=== PATIENT | female | born 1985 | race Hispanic/Latino ===

== ENCOUNTER 2023-12-25 15:29 | Emergency (ER) | payer BC ==
[~2023-12-25] VITALS: Ht 154.9 cm; Wt 43.1 kg
--- NOTE | 2023-12-25 15:30 | NUR ---
PT JUST ARRIVED AND ASSIGNED TO MY AND PLACED IN ED BED HALLWAY C1
--- NOTE | 2023-12-25 15:35 | NUR ---
PT ARRIVED VERY ANXIOUS APPERATING, HYPERVENTING WELL. SHE IS VERY UNCOOPERATIVE AND NOT WANTING TO FOLLOW ANY DIRECTIONS OR INSTRUCTIONS.
[2023-12-25 15:50] LABS: APPEARANCE,URINE CLOUDY (CLEAR); BILIRUBIN,URINE NEGATIVE (NEGATIVE); COLOR,URINE YELLOW (YELLOW); GLUCOSE, URINE (UA) NEGATIVE (NEGATIVE); KETONES,URINE NEGATIVE (NEGATIVE); LEUKOCYTE ESTERASE ,URINE 25 Leu/uL (NEGATIVE); NITRATE,URINE NEGATIVE (NEGATIVE); OCCULT BLOOD,URINE NEGATIVE (NEGATIVE); PH,URINE 8.5 (5.0-8.0); PROTEIN,URINE 20 mg/dL (NEGATIVE); UROBILINOGEN,URINE 0.2 mg/dL (0.2-1.0)
[2023-12-25] MEDS: PROMETHAZINE HCL 25 MG/ML 1ML AMPULE IM ONE (15:52)
[2023-12-25] MEDS: PROMETHAZINE HCL 25 MG/ML 1ML AMPULE IM SCH (15:52)
--- NOTE | 2023-12-25 15:52 | NUR ---
PT WAS GIVEN PHENERGAN IM D/T ASSIST I CALMING HER DOWN AND FOR HER FORCED SELF VOMITING. SECURITY HAD TO BE CALLED D/T PT AGGRESSIVENESS. PT ALSO STICKING HER FINGERS INTO HER MOUTH AND VOMITING ALL THE WATER SHE HAS DRUNK SINCE ARRIVING TO THE ED. PT VERBALIZED THAT SHE WANTS TO AND SAYS THAT SHE WOULD LIKE FOR US TO KILL HER AND SHE JUST NO LONGER WANTS TO LIVE.
[2023-12-25 15:53] LABS: ADD UA MICROSCOPIC YES
--- NOTE | 2023-12-25 15:55 | NUR ---
ONE TO ONE: [employer] SERVER CURRENTLY STANDING A 1:1 . PT IS VERY UNCOOPERATIVE.
[2023-12-25 16:00] LABS: AMPHET/METH SCREEN,URINE NEGATIVE (NEGATIVE); BARBITURATE SCREEN, URINE NEGATIVE (NEGATIVE); BENZODIAZEPINES SCREEN,URINE NEGATIVE (NEGATIVE); CANNABINOID SCREEN,URINE POSITIVE (NEGATIVE); COCAINE SCREEN,URINE NEGATIVE (NEGATIVE); OPIATE SCREEN,URINE NEGATIVE (NEGATIVE); PHENCYCLIDINE SCREEN,URINE NEGATIVE (NEGATIVE)
--- NOTE | 2023-12-25 16:00 | NUR ---
PT CONTINUES TO STICK HER FINGERS IN HER MOUTH AND FORCE HERSELF TO VOMIT AND THEN TURN AROUND AND ASKS FOR FLUIDS.
[2023-12-25 16:22] LABS: BACTERIA,URINE FEW /HPF (None Seen); MUCUS,URINE RARE LPF (None Seen); SQUAMOUS EPITHELIAL CELL,UR RARE /HPF (0-2)
[2023-12-25] MEDS: LORazepam 2 MG/ML 1 ML VIAL IM ONE (17:04)
[2023-12-25 17:22] LABS: BASOPHILS # (AUTO) 0.11 K/uL (0.00-0.20); BASOPHILS % (AUTO) 0.6 % (0.0-5.0); EOSINOPHILS # (AUTO) 0.07 K/uL (0.00-0.70); EOSINOPHILS % (AUTO) 0.4 % (0.0-8.0); HEMATOCRIT 38.9 % (36-48); IMMATURE GRANULOCYTE ABSOLUTE 0.14 K/uL (0-1); LYMPHOCYTES # (AUTO) 2.1 K/uL (1.0-4.8); LYMPHOCYTES % (AUTO) 11.4 % (21.0-51.0); MEAN CORPUSCULAR HGB CONC 34.2 g/dL (32.0-36.0); MEAN CORPUSCULAR VOLUME 93.7 fL (79-99); MONOCYTES # (AUTO) 1.2 K/uL (0.1-1.0); MONOCYTES % (AUTO) 6.8 % (3.0-13.0); NEUTROPHILS # (AUTO) 14.6 K/uL (1.8-7.7); PLATELET COUNT (AUTO) 324 K/uL (130-400); RED BLOOD CELL COUNT(AUTO) 4.15 MIL/uL (4.00-5.50); WHITE BLOOD COUNT (AUTO) 18.2 K/uL (4.8-10.8)
[2023-12-25 17:26] LABS: CARBON DIOXIDE 25 mmol/L (21-32); CHLORIDE 104 mmol/L (101-111); GLOMERULAR FILTR. RATE CALC 73 mL/min (>90); GLUCOSE,RANDOM 138 mg/dL (70-105); POTASSIUM 3.2 mmol/L (3.5-5.1); SODIUM SERUM 143 mmol/L (136-145); UREA NITROGEN, BLOOD 9 mg/dL (7-18)
[2023-12-25 17:30] LABS: ALCOHOL, BLOOD < 3 mg/dL (0-10); SALICYLATE 4.1 mg/dL (2.8-20.0)
--- NOTE | 2023-12-25 17:33 | NUR ---
PT UNCOOPERATIVE AND WILL NOT ALLOW COMPLETE VITAL SIGNS NOR 12 LEAD EKG. PT WALKS TO THE BATHROOM EVERY 5-10MINS WHILE STICKING HER FINGERS IN HER MOUTH.
[2023-12-25 17:42] LABS: ACETAMINOPHEN < 1 mcg/mL (10-30)
--- NOTE | 2023-12-25 17:56 | NUR ---
TRANSVERSE EKG DONE ON PT D/T HER REFUSING TO TURN TO SUPINE POSITION
[2023-12-25] MEDS ORDERED: PHARMACY COMMUNICATION MISC SCH (18:00)
--- NOTE | 2023-12-25 18:07 | NUR ---
PT STILL GOING TO AND FROM BATHROOM EVERY 5-10MINS STILL WHILE DRY HEAVING AND STICKING HER FINGERS IN HER MOUTH/THROAT
--- NOTE | 2023-12-25 18:13 | NUR ---
SPOKE TO [facility] CRISIS HOTLINE WORKER IN REGARDS TO PT. SHE WILL HAVE WAISTLINE JOINERUX INFORMATION ARCHITECT REACH OUT TO NUMBER I PROVIDED TO COME EVALUTE PT IN ED.
--- NOTE | 2023-12-25 18:22 | ERN ---
ED Note History of Present Illness Stated Complaint: SUICIDAL IDEATION Chief Complaint: Suicidal Ideation Time Seen by MD: 16:08 Dictation: This 38-year-old female activated EMS because she had intractable vomiting and felt like killing herself. She was very uncooperative EN route and tried to jump out of the EMS truck and did pull her IV out. She received Zofran 4 mg IV without relief and continued to retch and vomit throughout transport. The patient has not really given me any history. When I ask her questions she states she wants water. When she drinks water she puts her finger down her throat and vomits. Apparently someone at the scene stated that she has a psychiatric history but information is very limited Allergies: Coded Allergies: Sulfa (Sulfonamide Antibiotics) (Unverified Allergy, Unknown, 12/25/23) Past Medical History Past Medical History: Other Additional Past Medical Hx: ems reported partner in site reported psych history Surgical History: Unknown RN Note Reviewed/Agreed w/PFSH: Yes Review of System Dictation I am unable to obtain a meaningful review of systems as the patient is retching and uncooperative with history Initial Vital Sign VS Vital Signs Date Time Temp Pulse Resp B/P (MAP) Pulse Ox O2 Delivery O2 Flow Rate FiO2 12/25/23 16:17 68 20 161/100 100 Room Air* 0 21 12/25/23 21:51 97.7 Physical Exam Dictation VITAL SIGNS: note is made of triage vital signs CONSTITUTIONAL: This is a very uncomfortable patient who is who is awake and alert but is not answering questions and is repeatedly retching and vomiting clear liquid. She does state she just wants to . HEAD: Normocephalic, Atraumatic. EYES: Periorbital areas with no swelling, redness, or edema. Lids and lashes are normal. Conjunctival injection is absent. Sclera anicteric. Pupils equal, round, reactive to light. ENT: No nasal discharge noted. Posterior pharynx is deferred as the patient will not cooperate. Mucous membranes very dry NECK: Trachea midline, no masses palpated, and no cervical lymphadenopathy. No swelling. Supple, full range of motion without nuchal rigidity. No vertebral point tenderness. No meningismus. CHEST/AXILLA: Normal chest wall appearance and motion. No tenderness. No crepitus. CV: Normal rate, regular rhythm. No murmur. No edema. RESPIRATORY:Respiratory rate is normal. Bilateral equal breath sounds with good airflow. Normal breath sounds are noted. No rales, rhonchi or wheezes noted. No increased work of breathing, no retractions. ABDOMEN: Inspection normal. No distention is appreciated. Bowel sounds are normal. No mass or organomegaly is appreciated. There is epigastric discomfort but no overt tenderness. No rebound. No rigidity. No voluntary or involuntary guarding. BACK: Inspection is normal. No midline tenderness is appreciated. The patient appears comfortable when moving. : No CVA tenderness or bladder tenderness. SKIN: Warm, dry, with normal turgor. Capillary refill less than 3 seconds. Normal color.No rash. No cellulitis or abscess. No evidence of acute injury. MS/Extremity: There is no calf tenderness. Baseline range of motion is noted in all 4 extremities. There are no deformities. NEURO: Awake and alert, lucid. Facies symmetric and speech is clear. Motor strength 5/5 in all extremities. Sensory grossly intact. Gait is stable PSYCH: Patient voices a desire to . She is retching uncontrollably at and sticking her finger down her throat to induce vomiting. Affect is flat Results (Laboratory/Radiology) Laboratory/Radiology Laboratory Tests Test 12/25/23 15:39 12/25/23 16:53 12/26/23 11:30 Urine Color YELLOW (YELLOW) Urine Appearance CLOUDY (CLEAR) H Urine pH 8.5 (5.0-8.0) H Urine Specific [place] 1.020 (1.001-1.031) Urine Protein 20 mg/dL (NEGATIVE) H Urine Glucose (UA) NEGATIVE mg/dL (NEGATIVE) Urine Ketones NEGATIVE mg/dL (NEGATIVE) Urine Occult Blood NEGATIVE (NEGATIVE) Urine Nitrate NEGATIVE (NEGATIVE) Urine Bilirubin NEGATIVE mg/dL (NEGATIVE) Urine Urobilinogen 0.2 mg/dL (0.2-1.0) Urine Leukocyte Esterase 25 Halley/uL (NEGATIVE) H Urine RBC 2-5 /HPF (0-1) H Urine WBC 2-5 /HPF (0-1) H Urine Squamous Epithelial Cells RARE /HPF (0-2) Urine Amorphous Crystals (Auto) FEW /LPF (None Seen) Urine Bacteria FEW /HPF (None Seen) Urine Opiates Screen NEGATIVE (NEGATIVE) Urine Barbiturates Screen NEGATIVE (NEGATIVE) Urine Phencyclidine Screen NEGATIVE (NEGATIVE) Urine Amphetamines Screen NEGATIVE (NEGATIVE) Urine Benzodiazepines Screen NEGATIVE (NEGATIVE) Urine Cocaine Screen NEGATIVE (NEGATIVE) Urine Marijuana (THC) Screen POSITIVE (NEGATIVE) H White Blood Count 18.2 K/uL (4.8-10.8) H Red Blood Count 4.15 MIL/uL (4.00-5.50) Hemoglobin 13.3 g/dL (12.0-16.0) Hematocrit 38.9 % (36-48) Mean Corpuscular Volume 93.7 fL (79-99) Mean Corpuscular Hemoglobin 32.0 pg (27.0-33.0) Mean Corpuscular Hemoglobin Concent 34.2 g/dL (32.0-36.0) Red Cell Distribution Width 12.0 % (11.0-15.5) Platelet Count 324 K/uL (130-400) Mean Platelet Volume 9.6 fL (7.5-10.5) Immature Granulocyte % (Auto) 0.8 % (0-1) Neutrophils (%) (Auto) 80.0 % (40.0-77.0) H Lymphocytes (%) (Auto) 11.4 % (21.0-51.0) L Monocytes (%) (Auto) 6.8 % (3.0-13.0) Eosinophils (%) (Auto) 0.4 % (0.0-8.0) Basophils (%) (Auto) 0.6 % (0.0-5.0) Neutrophils # (Auto) 14.6 K/uL (1.8-7.7) H Lymphocytes # (Auto) 2.1 K/uL (1.0-4.8) Monocytes # (Auto) 1.2 K/uL (0.1-1.0) H Eosinophils # (Auto) 0.07 K/uL (0.00-0.70) Basophils # (Auto) 0.11 K/uL (0.00-0.20) Absolute Immature Granulocyte (auto 0.14 K/uL (0-1) Nucleated Red Blood Cells 0.0 % (0.0-0.19) Sodium Level 143 mmol/L (136-145) 133 mmol/L (136-145) L Potassium Level 3.2 mmol/L (3.5-5.1) L 3.8 mmol/L (3.5-5.1) Chloride Level 104 mmol/L (101-111) 98 mmol/L (101-111) L Carbon Dioxide Level 25 mmol/L (21-32) 25 mmol/L (21-32) Blood Urea Nitrogen 9 mg/dL (7-18) 8 mg/dL (7-18) Creatinine 1.0 mg/dL (0.5-1.0) 0.8 mg/dL (0.5-1.0) Glomerular Filtration Rate Calc 73 mL/min (>90) 95 mL/min (>90) Random Glucose 138 mg/dL (70-105) H 121 mg/dL (70-105) H Total Calcium 9.6 mg/dL (8.5-10.1) 9.4 mg/dL (8.5-10.1) Total Bilirubin 0.3 mg/dL (0.2-1.0) Direct Bilirubin 0.1 mg/dL (0.0-0.3) Aspartate Amino Transf (AST/SGOT) 21 U/L (10-37) Alanine Aminotransferase (ALT/SGPT) 25 U/L (12-78) Alkaline Phosphatase 66 U/L (50-136) Total Protein 7.6 g/dL (6.0-8.3) Albumin 4.2 g/dL (3.5-5.0) Lipase 26 U/L (16-77) Serum Test, Qualitative NEGATIVE (NEGATIVE) Salicylates Level 4.1 mg/dL (2.8-20.0) Acetaminophen Level < 1 mcg/mL (10-30) L Serum Alcohol < 3 mg/dL (0-10) Labs Reviewed?: Yes EKG Comment: Time reviewed: 1800 EKG number; 1 Rate and rhythm: Normal sinus rhythm at 61 beats per minute [place]: +65 Morphology: Low voltage in the precordial leads, septal Q-waves SD interval: 104 milliseconds QT interval: Normal at [address]/Twaves: normal Impression: normal sinus rhythm without STEMI or ectopy Comparison EKG: none EKG INTERPRETATION by Dr. Colleen Wallace ED Course ED Course Orders Procedure Category Date Status Time Cbc With Differential LAB 12/25/23 Complete 15:32 Basic Metabolic Panel LAB 12/25/23 Complete 15:32 Acetaminophen LAB 12/25/23 Complete 15:32 Salicylate LAB 12/25/23 Complete 15:32 Alcohol, Blood LAB 12/25/23 Complete 15:32 Drug Screen Urine LAB 12/25/23 Complete 15:32 Urinalysis Profile LAB 12/25/23 Complete 15:32 Testing, LAB 12/25/23 Complete Serum Hcg 15:32 Promethazine Hcl PHA 12/25/23 Complete (Phenergan) 15:46 Promethazine Hcl PHA 12/25/23 In Process (Phenergan) 16:00 One [employer] One Sitter CPOE 12/25/23 Transmitted 16:36 Lorazepam 2 Mg PHA 12/25/23 Complete (Ativan) 17:00 Ondansetron 4mg Inj PHA 12/25/23 In Process (Zofran 4mg Inj) 17:30 12 Lead Ekg Tracing- EKG 12/25/23 Complete Technical 17:20 0.9%Nacl 1000ml (Ns PHA 12/25/23 In Process 1000ml) 17:30 12 Lead Ekg Tracing- EKG 12/25/23 Logged Technical 17:29 Potassium Chloride PHA 12/25/23 In Process 20meq/100ml ([place] 17:30 Pharmacy PHA 12/25/23 Complete Communication 18:00 Capsaicin Cream PHA 12/25/23 In Process 56.6gm (Trixaicin 21:00 Lipase LAB 12/25/23 Complete 18:13 Hepatic Function Panel LAB 12/25/23 Complete 18:13 Haloperidol Inj PHA 12/25/23 In Process (Haldol Inj) 20:06 Basic Metabolic Panel LAB 12/26/23 Complete 11:20 Current Medications Medications (Trade) Dose Ordered Sig/Yevgeniy Route PRN Reason Start Time Stop Time Status Last Admin Dose Admin Capsaicin (Trixaicin Cream 56.6gm) Patient is suspected of canna... QID TP 12/25/23 21:00 01/24/24 17:59 12/25/23 18:32 Haloperidol Lactate (Haldol Inj) 2.5 mg ONCE STAT IV 12/25/23 20:06 12/25/23 20:07 12/25/23 20:38 Lorazepam (AtiVAN) 2 mg ONCE ONCE IM 12/25/23 17:00 12/25/23 17:01 DC 12/25/23 17:04 Ondansetron HCl (zoFRAN 4MG INJ) 4 mg ONCE ONCE IVP 12/25/23 17:30 12/25/23 17:31 12/25/23 18:42 Pharmacy Profile Note (Pharmacy Communication) 1 each ONCE MISC 12/25/23 18:00 12/25/23 17:47 DC Potassium Chloride 100 ml @ 50 mls/hr ONCE ONCE IV 12/25/23 17:30 12/25/23 19:29 12/25/23 18:42 Promethazine HCl (Phenergan) 25 mg STK-MED ONCE IM 12/25/23 15:46 12/25/23 15:46 DC Promethazine HCl (Phenergan) 50 mg ONCE IM 12/25/23 16:00 01/01/24 15:59 12/25/23 15:52 Sodium Chloride 1,000 ml @ 0 mls/hr ONCE ONCE IV 12/25/23 17:30 12/25/23 17:31 12/25/23 18:41 Vital Signs Date Time Temp Pulse Resp B/P (MAP) Pulse Ox O2 Delivery O2 Flow Rate FiO2 12/26/23 10:00 99.5 72 18 151/98 100 Room Air* 0 12/26/23 05:50 97.3 79 16 142/80 100 Room Air* 0 12/26/23 00:11 78 16 138/82 99 Room Air* 0 12/25/23 21:51 97.7 82 16 146/85 100 Room Air* 0 12/25/23 19:17 52 18 173/88 Room Air* 0 12/25/23 16:17 68 20 161/100 100 Room Air* 0 21 Medical Decision Making MDM INITIAL IMPRESSION Initial history and physical concerning for intractable vomiting possibly due to cannabis hyperemesis, rule other substance ingestion, metabolic abnormality, dehydration Contributing medical problems: There is a secondhand report of psychiatric disease I do not have other past medical history and initial evaluation I have reviewed the triage nursing notes and vital signs. [The patient is afebrile with acceptable oxygen saturation, heart rate and blood pressure.] Initial plan: Symptomatic therapy and laboratory screening. If the patient can be cleared and stops vomiting and retching we will have her evaluated by psych DATA REVIEW [I have reviewed additional NN, repeat VS, and monitoring where indicated.] [Heart rate, blood pressure, and O2 saturation are acceptable]. Wang diagnostic results: Potassium is 3.2. Kidney function is normal. Glucose is 138. test is negative. Urine drug screen is positive for marijuana. Alcohol, salicylates and acetaminophen are negative. Patient's white count is 18.2 with a normal hemoglobin. There was neutrophil predominance. Urinalysis is unremarkable Other independent historian: Limited additional history from EMS Review of external data: No previous visits to [facility] ED COURSE Interventions: Patient received ondansetron from EMS without relief. I treated her with promethazine 50 mg IM without change. She received additional Zofran and 2 mg of Ativan. Reassessment: She is less agitated and has stopped trying to hit and kick the staff but she continues to retch uncontrollably and continues to ask for water Next steps include capsaicin over the abdomen and consideration of Haldol if that does not work. Potassium repletion has been started IV as the patient would not tolerate p.o. potassium at the present time. Based on abdominal exam I am suspecting a reactive leukocytosis but she may require a CT when she is more cooperative Care will be signed out to at 7:00 p.m. for further management and final disposition Progress note by Dr. Colleen Wallace. I assumed care of this patient at 7:00 a.m.. I have reviewed the nursing notes, vital signs and available diagnostic studies. I have reviewed the charting completed by my colleague. The patient received Haldol during the night and has been sleeping quietly. When she woke up she was able to take some jello and had stopped vomiting. She reported suicidal ideation because no one cares about her and she has been struggling with drugs and alcohol The screener was called and interviewed her. After they discussed a variety of management plans the patient has stated that she felt better and was not immediately suicidal. She wants to be in a safe place and is comfortable going voluntarily to [place]. Her boyfriend is coming to pick her up and take her. We are pending a repeat potassium at this time after which I anticipate discharge Repeat potassium unremarkable. Patient is stable for discharge. DX & DISP Disposition: Discharge Decision to Admit Date: Dec 26, 2023 Decision to Admit Time: 11:58 Departure Impression: Primary Impression: Intractable vomiting Additional Impressions: Cannabis dependence, History of alcohol abuse, Si tuational depression, Hypokalemia-resolved Condition: Stable Additional Instructions: Both alcohol withdrawal and marijuana use can cause severe vomiting. Use a clear liquid diet for the next 24 hours and then advance to a bland diet as tolerated. Go directly to [facility] from here for possible intake. Follow up with your family physician as needed Referrals: SELF,REFERRAL (PCP) Time of Disposition: 12:00 COLLEEN WALLACE MD Dec 25, 2023 18:22
[2023-12-25] MEDS: CAPSAICIN CREAM 56.6GM TP SCH (18:32)
[2023-12-25] MEDS: 0.9%NACL 1000ML 1,000 ML IV ONE (18:41)
[2023-12-25] MEDS: PoTASSium chloRIDE 20MEQ/100ML 100 ML IV ONE (18:42)
[2023-12-25] MEDS: ondanSETRON 4MG INJ IVP ONE (18:42)
[2023-12-25 18:46] LABS: ALBUMIN 4.2 g/dL (3.5-5.0); BILIRUBIN,DIRECT 0.1 mg/dL (0.0-0.3); BILIRUBIN,TOTAL 0.3 mg/dL (0.2-1.0); TOTAL PROTEIN, SERUM 7.6 g/dL (6.0-8.3)
--- NOTE | 2023-12-25 19:05 | NUR ---
patient in bathroom inducing vomiting by putting fingers down throat, lalo Carvajal with Arnaud Orona in department to screen patient.
--- NOTE | 2023-12-25 19:07 | NUR ---
REPORT ENDORSED TO EARLE RAMIREZ AND TROPICAL SCREENER HERE AT BEDSIDE TO EVALUATE THE PT. PT STILL DRY HEAVING AND STICKING FINGERS IN HER MOUTH EACH TIME SHE GOES TO THE BATHROOM WHICH IS STILL EVERY 8MINS
--- NOTE | 2023-12-25 19:10 | NUR ---
per screener, unable to assess patient at this time, patient refusing to answer questions, patient continues to retch, will return to screen patient when nausea and vomiting have been controlled
[2023-12-25] MEDS: HALOPERIDOL INJ 5 MG/ML VIAL IV STA (20:38)
--- NOTE | 2023-12-25 21:49 | NUR ---
PATIENT SLEEPING COMFORTABLY, NO VOMITING NOTED SINCE ADMINISTRATION OF HALDOL 2.5 MG AT 2037
--- NOTE | 2023-12-26 07:08 | NUR ---
PSCYCH 1:1 REFER TO PSCYCH DOCUMENTATION. Duable Chinese IS AT PT SIDE. HALLWAY C1
--- NOTE | 2023-12-26 07:08 | NUR ---
REPORT RECEIVED FROM EARLE RAMIREZPERSONAL LINES INSURANCE ADVISOR.
--- NOTE | 2023-12-26 08:15 | NUR ---
I CALLED [facility] DISPATCH AND SPOKE W/DAVID AND SHE SAID SHE WOULD INFORM THE FLOOR FRAMER TO COME AND ASSESS THE PT.
--- NOTE | 2023-12-26 09:26 | NUR ---
PT TOLERATED 2 OUNCES OF JELLO AND HAS YET TO STICK FINGER IN THROAT OR VOMIT. PT IS MORE COOPERATIVE TODAY COMPARED TO LATE YESTERDAY IN SHIFT.
--- NOTE | 2023-12-26 09:30 | NUR ---
ASSESSMENT: PT FOUND IN HALLWAY C1 WHERE SHE WAS LAST NIGHT PRIOR TO MY LEAVING SHIFT AT 1900HRS. PT WAS ASLEEP THIS AM WHEN I RECIEVED REPORT FROM EARLE RAMIREZ. CURRENTLY SHE IS BREATHING EASY AND REGULAR. SHE HAS BEEN OOB TWICE W/ELA THE TECH TO VOID. NEURO: PT COOPERATIVE, GCS 15. SHE STILL HAS SOME SHAKINESS TO HER BODY AND APPEARS TO BE A LITTLE ANXIOUS. WHEN SHE SPEAKS, HER VOICE IS A LITTLE SHAKY. WHEN ASKED IF SHE STILL FELT LIKE SHE WANTED TO OR HARM HERSELF, SHE SAID "YES". THAT SHE IS TIRED OF TRYING. WHEN ASKED TIRED OF TRYING WHAT, SHE SAID TIRED OF BEING SOBER FROM MARIJUANA AND ALCOHOL. THAT SHE HAS NO ONE AND EVEN HER KIDS DO NOT SEEM TO CARE ABOUT HER. THAT WHY TRY WHEN NO ONE CARES. WHEN ASKED HAD SHE CONSIDERED HOW SHE WOULD TRY TO HARM HERSELF, SHE SAID SHE HAS 20 SLEEPING PILLS AND 10 OTHERS (UNKNOWN). TO JUST SLEEP AND . CARDIO/PULMONARY: S1S2 AUSCULTATION APICALLY. +2 PULSES TO RADIAL/DORSALIS PEDAL SITES. CAP REFILL LESS THAN 3 SECONDS. PT DENIES CP. L HAND 20G SL. LSCTA TO ALL PATEL. NO CYANOSIS NOTED TO NAIL BEDS. PT STATES SHE HAS A SORETHROAT, BUT SHE HAD BEEN STICKING HER FINGERS DOWN HER THROAT AND MAKING HERSELF GAG YESTERDAY AFTERNOON/EVENING. GI/: DENIES ANY N/V AT THIS TIME. NO ATTEMPT TO MAKE HERSELF VOMIT THIS AM. DENIES ANY BOWEL/BLADDER ISSUES MUSCULOSKELETAL/INTEGUMENTARY: SKIN IS COOL TO TOUGH BUT OTHERWISE NO ISSUES NOR ANY ISSUES W/HER ROM AND NO DEFORMITIES.
--- NOTE | 2023-12-26 09:40 | EKG ---
[facility] Test Date: 2023-12-25 Test Time: 17:54:02 Pat Name: VALERIA DAHL Department: ED Room: Gender: F Paleologist: [id number] : 1985 Requested By: COLLEEN WALLACE Order Number: [id number] Reading MD: Valentin Bell Measurements Intervals [place] Rate: 61 P: 38 WY: 104 QRS: 65 QRSD: 77 T: 31 QT: 483 QTc: 486 Interpretive Statements Sinus rhythm Low voltage, precordial leads Anteroseptal infarct, age indeterminate No previous ECG available for comparison Electronically Signed On 12-26-2023 14:53:41 CDT by Valentin Bell Please click the below link to view image of tracing.
[2023-12-26 10:00] VITALS: BP 151/98; PULSE 72; RESP 18; TEMP 99.5; O2SAT 100
--- NOTE | 2023-12-26 10:20 | NUR ---
[facility] BILLET DRILLER BRENT IS HERE
--- NOTE | 2023-12-26 10:33 | NUR ---
PSYCH EVAL: PT IN ED BED 6 TO SPEAK W/STUCCO LABORER
--- NOTE | 2023-12-26 11:02 | NUR ---
PSYCH EVALUATION DONE
--- NOTE | 2023-12-26 11:21 | NUR ---
ED MD WALLACE INFORMED OF [facility] ASSESSMENT. PT HAS VERBALIZED A VERBAL SAFETY CONTRACT W/KENNEDY THE ENGINEERING MODEL MAKER
[2023-12-26 11:49] LABS: CREATININE 0.8 mg/dL (0.5-1.0); POTASSIUM 3.8 mmol/L (3.5-5.1)
--- NOTE | 2023-12-26 12:16 | NUR ---
JUST SPOKE TO BHUMIKA THE PTS SIGNIFICANT OTHER AND HE STATED HE WOULD BE HERE IN ABOUT 45MINS.
== END 2023-12-26 13:35 | disposition home or self-care (01) ==
LOC: EDH 15:29
DX: R11.10 Vomiting, unspecified (principal); F12.20 Cannabis dependence, uncomplicated; F10.10 Alcohol abuse, uncomplicated; F32.A Depression, unspecified; Z79.899 Other long term (current) drug therapy; Z88.2 Allergy status to sulfonamides; Y90.0 Blood alcohol level of less than 20 mg/100 ml
CPT/HCPCS: 99284; 96365; 96375; 96366; 80076; 80048 ×2; 80305; 84703; 83690; 85025; 36415 ×2; 93005; 81001; 96372; G0481; J7030; J2550; J1630; J2405; J2060; J3480

== ENCOUNTER 2024-03-08 13:33 | Emergency (ER) | payer BC ==
[~2024-03-08] VITALS: Ht 160 cm; Wt 61.2 kg
[2024-03-08] MEDS: MAG/ALUM/SIMETH 30 ML UDCUP PO ONE (15:00)
[2024-03-08] MEDS: ondanSETRON 4MG INJ IVP ONE (15:00)
[2024-03-08] MEDS: LIDOCAINE HCL 2% VISCOUS 15 ML UDCUP PO ONE (15:00)
[2024-03-08] MEDS: PANTOPrazole 40 MG/VIAL IVP ONE (15:00)
[2024-03-08] MEDS: acetaMINOPHEN 325 MG TAB PO ONE (15:01)
[2024-03-08] MEDS: LACTATED RINGERS 1000ML 1,000 ML IV ONE (15:02)
[2024-03-08 15:07] LABS: BASOPHILS # (AUTO) 0.08 K/uL (0.00-0.20); BASOPHILS % (AUTO) 0.4 % (0.0-5.0); EOSINOPHILS # (AUTO) 0.03 K/uL (0.00-0.70); EOSINOPHILS % (AUTO) 0.1 % (0.0-8.0); HEMATOCRIT 37.9 % (36-48); IMMATURE GRANULOCYTE ABSOLUTE 0.12 K/uL (0-1); LYMPHOCYTES # (AUTO) 1.3 K/uL (1.0-4.8); LYMPHOCYTES % (AUTO) 6.6 % (21.0-51.0); MEAN CORPUSCULAR HEMOGLOBIN 32.5 pg (27.0-33.0); MEAN CORPUSCULAR VOLUME 95.5 fL (79-99); MONOCYTES # (AUTO) 0.8 K/uL (0.1-1.0); NEUTROPHILS % (AUTO) 88.3 % (40.0-77.0); PLATELET COUNT (AUTO) 313 K/uL (130-400); RED BLOOD CELL COUNT(AUTO) 3.97 MIL/uL (4.00-5.50); RED CELL DISTRIBUTION WIDTH 12.5 % (11.0-15.5); WHITE BLOOD COUNT (AUTO) 20.3 K/uL (4.8-10.8)
[2024-03-08 15:29] LABS: CREATININE 0.9 mg/dL (0.5-1.0); POTASSIUM 3.7 mmol/L (3.5-5.1)
[2024-03-08 15:31] LABS: APPEARANCE,URINE CLEAR (CLEAR); BILIRUBIN,URINE NEGATIVE (NEGATIVE); COLOR,URINE LIGHT-YELLOW (YELLOW); GLUCOSE, URINE (UA) NEGATIVE (NEGATIVE); KETONES,URINE 10 mg/dL (NEGATIVE); LEUKOCYTE ESTERASE ,URINE NEGATIVE Leu/uL (NEGATIVE); NITRATE,URINE NEGATIVE (NEGATIVE); OCCULT BLOOD,URINE NEGATIVE (NEGATIVE); PROTEIN,URINE NEGATIVE (NEGATIVE); UROBILINOGEN,URINE 0.2 mg/dL (0.2-1.0)
[2024-03-08 15:33] LABS: ADD UA MICROSCOPIC NO
[2024-03-08 15:39] LABS: ALBUMIN 4.3 g/dL (3.5-5.0); BILIRUBIN,TOTAL 0.3 mg/dL (0.2-1.0); TOTAL PROTEIN, SERUM 7.6 g/dL (6.0-8.3)
[2024-03-08 15:42] LABS: AMPHET/METH SCREEN,URINE NEGATIVE (NEGATIVE); BARBITURATE SCREEN, URINE NEGATIVE (NEGATIVE); BENZODIAZEPINES SCREEN,URINE NEGATIVE (NEGATIVE); CANNABINOID SCREEN,URINE POSITIVE (NEGATIVE); COCAINE SCREEN,URINE NEGATIVE (NEGATIVE); OPIATE SCREEN,URINE NEGATIVE (NEGATIVE); PHENCYCLIDINE SCREEN,URINE NEGATIVE (NEGATIVE)
[2024-03-08] MEDS: HALOPERIDOL INJ 5 MG/ML VIAL IV STA (16:20)
--- NOTE | 2024-03-08 16:29 | NUR ---
PHARMACY CALLED FOR HALDOL LABEL READING IM USE ONLY, INDIO FROM PHARMACY " STATES OK TO GIVE HALDOL IV"
--- NOTE | 2024-03-08 17:08 | HMCIMG ---
CT ABDOMEN/PELVIS W/O CONTRAST REASON: abd pain COMPARISON: None. FINDINGS: Lung bases are clear. There are no focal liver lesions. There is a 3 mm nonobstructing stone lower pole calyx left kidney. Kidneys appear otherwise normal.. Spleen and pancreas appear unremarkable. The gallbladder appears normal as well. Bowel loops appear unremarkable. This includes normal appearance of the appendix There is no evidence of free fluid or intraperitoneal air. There are no focal fluid collections. Aorta and retroperitoneum appear normal. Uterus appears unremarkable. There is a 4.8 x 4.1 cm cyst or cystic mass left adnexal region. There is a more acute tubular fluid filled structure right adnexal region, this measures 8 cm in length and 3.1 cm axial dimension, this could be a fluid-filled fallopian tube. Pelvic ultrasound is recommended for further evaluation of these findings. The soft tissues appear otherwise unremarkable. The anterior abdominal wall is intact. Osseous structures appear unremarkable. IMPRESSION: 1. 4.8 x 4.1 cm cystic lesion in the left ovary, simple cyst favored 2. Elongated fluid collection in the right adnexal region, 8 cm long 3 cm wide this could represent an enlarged fallopian tube catheter. Pelvic ultrasound recommended for further evaluation of these findings 3. There is a 3 cm stone lower pole calyx of the left kidney, nonobstructing. 4. Otherwise unremarkable exam. CT was performed with one or more following dose reduction techniques: automated exposure control, adjustment of the mA and kv according to patient's size, or use of a iterative reconstruction technique.
--- NOTE | 2024-03-08 17:49 | NUR ---
PT REFUSING EKG AND ULTRASOUND AT THIS TIME.
--- NOTE | 2024-03-08 17:53 | NUR ---
BENNY MADE AWARE PT REFUSING US AND EKG, PT ADVISED ON THE IMPORTANCE OF OBTAINING STUDIES, CONTINUES TO REFUSE, PT ALSO REFUSING TO SIGN REFUSAL DOCUMENT, DOCUMENT SIGNED AND WITNESS BY MYSELF AND BARRIE RAMIREZ
--- NOTE | 2024-03-08 18:21 | ERN ---
General Chief Complaint: Abdominal Pain Stated Complaint: ABDOMINAL PAIN Time Seen by MD: 13:34 Source: patient History of Present Illness Initial Comments Is a 38-year-old female coming in to be evaluated for abdominal pain. Patient states that this pain has been ongoing for a couple of days. Along with the pain patient states he has been having nauseousness and vomiting episodes. No fever no chills. Allergies: Coded Allergies: Sulfa (Sulfonamide Antibiotics) (Unverified Allergy, Unknown, 12/25/23) Home Meds Active Scripts Ondansetron (Ondansetron Odt) 4 Mg Tab.rapdis, 1 TAB PO Q6HPRN PRN for nausea/vomiting for 4 Days, #16 TAB 0 Refills Prov:GILES FORRESTER MD 03/08/24 Ketorolac Tromethamine (Toradol) 10 Mg Tab, 1 TAB PO Q6HPRN PRN for pain for 5 Days, #20 TAB 0 Refills Prov:GILES FORRESTER MD 03/08/24 Past Medical History Past Medical History: No Pertinent History Medical History Other: ems reported partner in site reported psych history Past Surgical History: Other ROS Dictation CONSTITUTIONAL: No chills, no fever, no weakness, no diaphoresis, no malaise. HEAD/FACE: No signs of trauma. EENT: No eye pain, no blurred vision, no tearing, no double vision, no ear pain, no ear discharge, no nose pain, no nasal congestion, no throat pain, no throat swelling, no mouth pain. RESPIRATORY: No cough, no orthopnea, no SOB, no stridor, no wheezing. CARDIOVASCULAR: No chest pain, no edema, no palpitations, no syncope. GASTROINTESTINAL/ABDOMINAL: abdominal pain, no constipation, no diarrhea, no nausea, no vomiting. GENITOURINARY: No abnormal discharge, no dysuria, no frequent urination, no hematuria. No complaints of pain in the genitals. MUSCULOSKELETAL: No back pain, no gout, no joint pain, no joint swelling, no muscle pain, no muscle stiffness, no neck pain. INTEGUMENTARY: No change in color, no change in hair/nails, no dryness, no lesion, no lumps, no rash. NEUROLOGICAL/PSYCH: No anxiety, not depressed, no emotional problem, no he adache, no numbness, no pre-existing deficit, no history of seizures, no tremors, no weakness. HEMATOLOGIC/LYMPHATIC: Not anemic, no history of blood clots, no apparent bleeding, no bruising, glands not swollen. All Systems Negative, Except as Noted. Physical Exam Physical Exam Dictation VITAL SIGNS: Reviewed. GENERAL APPEARANCE: Alert, oriented x3, no acute distress, obese. HEAD AND FACE: Non-traumatic. EYES: PERRL, pink conjunctivas, eyelid no trauma, anterior chamber clear. EARS: Pinnas intact and no signs of trauma or erythema. Ear canals clear and no discharge. TMs no erythema. NOSE: No discharge, no bleeding. OROPHARYNX: Mouth normal, teeth no caries, tongue pink. Pharynx clear, no erythema. Tonsils no exudates, no abscesses noted. Mucous membrane moist. NECK: Supple, non-tender, no thyromegaly, no masses, no JVD, no bruits. BREAST: Deferred. CHEST: No tenderness, no crepitus, no paradoxical movement, no retractions. LUNGS: Clear, well-ventilated, symmetric, no rales, no wheezing, no rhonchi, no stridor, good breath sounds bilaterally. HEART: Regular rate, regular rhythm, no murmur, no gallops. VASCULAR: No peripheral edema. ABDOMEN: Soft, positive bowel sounds, nondistended, no guarding, generalized abdominal tender, no rebound, no masses no hepatomegaly, no splenomegaly, no Hernández's sign, no hernias. RECTAL: Deferred. GENITAL: Deferred. NEUROLOGICAL: Normal speech, gross motor function intact, gross sensory function intact. MUSCULOSKELETAL: Neck nontender, full range of motion, back nontender, full range of motion. EXTREMITIES: Nontender, full range of motion. SKIN: Color pink, dry, no turgor, no rash, no lacerations, no abrasions, no contusions. LYMPHATICS: Deferred. Results Laboratory and Microbiology Lab and Micro Result Laboratory Tests Test 03/08/24 14:32 03/08/24 15:08 White Blood Count 20.3 K/uL (4.8-10.8) H Red Blood Count 3.97 MIL/uL (4.00-5.50) L Hemoglobin 12.9 g/dL (12.0-16.0) Hematocrit 37.9 % (36-48) Mean Corpuscular Volume 95.5 fL (79-99) Mean Corpuscular Hemoglobin 32.5 pg (27.0-33.0) Mean Corpuscular Hemoglobin Concent 34.0 g/dL (32.0-36.0) Red Cell Distribution Width 12.5 % (11.0-15.5) Platelet Count 313 K/uL (130-400) Mean Platelet Volume 8.8 fL (7.5-10.5) Immature Granulocyte % (Auto) 0.6 % (0-1) Neutrophils (%) (Auto) 88.3 % (40.0-77.0) H Lymphocytes (%) (Auto) 6.6 % (21.0-51.0) L Monocytes (%) (Auto) 4.0 % (3.0-13.0) Eosinophils (%) (Auto) 0.1 % (0.0-8.0) Basophils (%) (Auto) 0.4 % (0.0-5.0) Neutrophils # (Auto) 18.0 K/uL (1.8-7.7) H Lymphocytes # (Auto) 1.3 K/uL (1.0-4.8) Monocytes # (Auto) 0.8 K/uL (0.1-1.0) Eosinophils # (Auto) 0.03 K/uL (0.00-0.70) Basophils # (Auto) 0.08 K/uL (0.00-0.20) Absolute Immature Granulocyte (auto 0.12 K/uL (0-1) Nucleated Red Blood Cells 0.0 % (0.0-0.19) White Cell Morphology Comment See comments Sodium Level 141 mmol/L (136-145) Potassium Level 3.7 mmol/L (3.5-5.1) Chloride Level 103 mmol/L (101-111) Carbon Dioxide Level 24 mmol/L (21-32) Blood Urea Nitrogen 6 mg/dL (7-18) L Creatinine 0.9 mg/dL (0.5-1.0) Glomerular Filtration Rate Calc 83 mL/min (>90) Random Glucose 126 mg/dL (70-105) H Total Calcium 9.7 mg/dL (8.5-10.1) Total Bilirubin 0.3 mg/dL (0.2-1.0) Aspartate Amino Transf (AST/SGOT) 20 U/L (10-37) Alanine Aminotransferase (ALT/SGPT) 23 U/L (12-78) Alkaline Phosphatase 56 U/L (50-136) Total Creatine Kinase 135 U/L (21-232) Troponin I High Sensitivity < 4 ng/L (4-50) L Total Protein 7.6 g/dL (6.0-8.3) Albumin 4.3 g/dL (3.5-5.0) Lipase 40 U/L (16-77) Human Chorionic Gonadotropin, Quant 0 mIU/mL (0-5) Urine Color LIGHT-YELLOW (YELLOW) Urine Appearance CLEAR (CLEAR) Urine pH 8.0 (5.0-8.0) Urine Specific [place] 1.013 (1.001-1.031) Urine Protein NEGATIVE mg/dL (NEGATIVE) Urine Glucose (UA) NEGATIVE mg/dL (NEGATIVE) Urine Ketones 10 mg/dL (NEGATIVE) H Urine Occult Blood NEGATIVE (NEGATIVE) Urine Nitrate NEGATIVE (NEGATIVE) Urine Bilirubin NEGATIVE mg/dL (NEGATIVE) Urine Urobilinogen 0.2 mg/dL (0.2-1.0) Urine Leukocyte Esterase NEGATIVE Halley/uL Urine Opiates Screen NEGATIVE (NEGATIVE) Urine Barbiturates Screen NEGATIVE (NEGATIVE) Urine Phencyclidine Screen NEGATIVE (NEGATIVE) Urine Amphetamines Screen NEGATIVE (NEGATIVE) Urine Benzodiazepines Screen NEGATIVE (NEGATIVE) Urine Cocaine Screen NEGATIVE (NEGATIVE) Urine Marijuana (THC) Screen POSITIVE (NEGATIVE) H Labs Reviewed?: Yes MDM MDM: Differential diagnosis: Cannabis abuse, gastroenteritis, Rationale: Tests considered and ordered secondary to shared decision making include: Previous outside records reviewed: Old ER visits. Risk of complication and/or morbidity or mortality of patient management: None Medications-Per medication reconciliation Need for hospitalization: Patient does not meet criteria for hospitalization. Need for emergency major/minor surgery: No There are no social concerns with this patient. Prescription drug management Prescriptions will include symptomatic care Patient's prior external medical records from other ER visits were reviewed by me as indicated. Prior testing and results from previous visits were reviewed. Prior tests were taken into account with medical decision making and resource u tilization, independent historian/historians were used to obtain complete medical history. I independently interpreted the test that were performed, results were reviewed by me and considered findings on radiology if ordered. Medical management and examination interpretation discussions were had by me with other qualified healthcare professionals as indicated for the patient's ca re. ED Course Orders Procedure Category Date Status Time Cbc With Differential LAB 03/08/24 Complete 13:39 Comprehensive LAB 03/08/24 Complete Metabolic Panel 13:39 Troponin I High LAB 03/08/24 Complete Sensitivity 13:39 Hcg,Quantitative LAB 03/08/24 Complete 13:39 Urinalysis Profile LAB 03/08/24 Complete 13:39 Lactated Ringers PHA 03/08/24 Complete 1000ml (Lactated 14:00 Acetaminophen 325 Tab PHA 03/08/24 Complete (Tylenol 325mg Tab 14:00 Ondansetron 4mg Inj PHA 03/08/24 Complete (Zofran 4mg Inj) 14:00 Lidocaine Hcl 2% PHA 03/08/24 Complete Viscous (Lidocaine Hcl 14:00 Mag/Alum/Simeth 30ml PHA 03/08/24 Complete (Maalox Plus 30ml) 14:00 Pantoprazole 40mg Inj PHA 03/08/24 Complete (Protonix 40mg Inj 14:00 Creatine Kinase, Total LAB 03/08/24 Complete 13:39 Lipase LAB 03/08/24 Complete 13:39 Drug Screen Urine LAB 03/08/24 Complete 15:07 Haloperidol Inj PHA 03/08/24 Complete (Haldol Inj) 16:07 Ct Abdomen/Pelvis W/O CT 03/08/24 Resulted Contrast 16:07 Ketorolac PHA 03/08/24 Complete Tromethamine 30mg/Ml 18:30 Us Pelvic Non-Ob Comp US 03/08/24 Resulted Current Medications Medications (Trade) Dose Ordered Sig/Yevgeniy Route PRN Reason Start Time Stop Time Status Last Admin Dose Admin Acetaminophen (TYLenol 325MG TAB) 650 mg ONCE ONCE PO 03/08/24 14:00 03/08/24 14:01 DC 03/08/24 15:01 Al Hydroxide/Mg Hydroxide (MAALox PLUS 30ML) 30 ml ONCE ONCE PO 03/08/24 14:00 03/08/24 14:01 DC 03/08/24 15:00 Haloperidol Lactate (Haldol Inj) 2.5 mg ONCE STAT IV 03/08/24 16:07 03/08/24 16:09 DC 03/08/24 16:20 Ketorolac Tromethamine (toRADol) 30 mg ONCE ONCE IVP 03/08/24 18:30 03/08/24 18:31 DC 03/08/24 18:34 Lactated Ringer's 1,000 ml @ 0 mls/hr ONCE ONCE IV 03/08/24 14:00 03/08/24 14:01 DC 03/08/24 15:02 Lidocaine HCl (Lidocaine HCl 2% Viscous) 10 ml ONCE ONCE PO 03/08/24 14:00 03/08/24 14:01 DC 03/08/24 15:00 Ondansetron HCl (zoFRAN 4MG INJ) 4 mg ONCE ONCE IVP 03/08/24 14:00 03/08/24 14:01 DC 03/08/24 15:00 Pantoprazole Sodium (PROTonix 40MG INJ) 40 mg ONCE ONCE IVP 03/08/24 14:00 03/08/24 14:01 DC 03/08/24 15:00 Vital Signs Date Time Temp Pulse Resp B/P (MAP) Pulse Ox O2 Delivery O2 Flow Rate FiO2 03/08/24 19:37 98.4 97 18 120/81 98 Room Air* 0 03/08/24 15:08 98.4 74 20 135/97 99 Room Air* 0 21 03/08/24 13:34 98.2 80 18 121/62 98 0 DX & DISP Disposition: Discharge Departure Impression: Primary Impression: Intractable vomiting Additional Impressions: Cannabis dependence, Abdominal pain, Cyst of ovary, left Condition: Stable Scripts Ondansetron (Ondansetron Odt) 4 Mg Tab.rapdis 1 TAB PO Q6HPRN PRN for nausea/vomiting for 4 Days, #16 TAB 0 Refills Prov: GILES FORRESTER MD 03/08/24 Ketorolac Tromethamine (Toradol) 10 Mg Tab 1 TAB PO Q6HPRN PRN for pain for 5 Days, #20 TAB 0 Refills Prov: GILES FORRESTER MD 03/08/24 Referrals: WILLIAM JOHNSON (PCP) STAN KNAPP MD Mar 08, 2024 18:21 GILES FORRESTER MD Mar 08, 2024 20:47
[2024-03-08] MEDS: ketOROlac 30MG VIAL (30MG/ML) IVP ONE (18:34)
--- NOTE | 2024-03-08 18:34 | NUR ---
PT AGREES TO US NOW, US TECH MADE AWARE
[2024-03-08 19:37] VITALS: BP 120/81; PULSE 97; RESP 18; TEMP 98.5; O2SAT 98
--- NOTE | 2024-03-08 19:55 | HMCIMG ---
US PELVIC NON-OB COMP REASON: pelvic pain COMPARISON: None TECHNIQUE: Routine pelvic sonogram was performed. FINDINGS: Uterus is 8.7 x 5.3 x 4.6 cm. Endometrium is 8 mm. There are no endometrial or myometrial masses. There is a 2.9 cm cyst or dominant follicle right ovary. There is a 3.2 cm cyst or dominant follicle left ovary. The left ovarian cyst appears complex, possibly complicated by hemorrhage or infection. There are no solid adnexal masses. There is no free fluid in the cul-de-sac. IMPRESSION: 1. 2.9 cm simple appearing cyst or dominant follicle right ovary. 2. 2.9 x 3.2 cm more complex cystic lesion left ovary, there are some internal echoes, this may be complicated by hemorrhage or infection. 3. Short-term interval sonographic follow-up recommended to confirm stable appearance or resolution of the left adnexal lesion.
[2024-03-08] MEDS ORDERED: ACET-2079 PO (20:40)
[2024-03-08] MEDS ORDERED: KETO10 PO (20:43)
[2024-03-08] MEDS ORDERED: ONDA-243 PO (20:47)
== END 2024-03-08 21:03 | disposition home or self-care (01) ==
LOC: EDH 13:33
DX: R11.10 Vomiting, unspecified (principal); F12.20 Cannabis dependence, uncomplicated; R10.9 Unspecified abdominal pain; R10.2 Pelvic and perineal pain; N83.202 Unspecified ovarian cyst, left side; Z88.2 Allergy status to sulfonamides
CPT/HCPCS: 99285; 74176; 96374; 96375; 76856; 96361; 82550; 84484; 80053; 80305; 84702; 83690; 85025; 36415; 81003; J7120; J1630; J2405; J1885; J2470

== ENCOUNTER 2024-12-13 18:26 | Emergency (ER) | payer BC ==
[~2024-12-13] VITALS: Ht 165.1 cm; Wt 59.0 kg
[~2024-12-13 18:26] MED LIST: AMLO-257 PO; CEFD300C3 PO; FLUO-341 PO; FOLI1 PO; GABA-1405 PO; HYDR50CA50 PO; KETO10 PO; ONDA-243 PO; PRAZ2CAP2 PO; VENL75CA97 PO
--- NOTE | 2024-12-13 18:41 | ERN ---
ED Note History of Present Illness Stated Complaint: ANXIETY Chief Complaint: Anxiety/Panic Attack Time Seen by MD: 18:31 Dictation: PATIENT IS A 39-YEAR-OLD FEMALE COMING IN VIA EMS FROM [facility] WITH COMPLAINTS OF ANXIETY AND A PANIC ATTACK. SHE STATES SHE HAS BEEN FEELING THIS WAY SINCE YESTERDAY SHE IS HAVING SPASMS TO HER HANDS AND FEET. NO THOUGHTS OF SUICIDAL OR HOMICIDAL IDEATION. SHE STATES SHE HAS A HISTORY OF ANXIETY/PANIC ATTACK/BIPOLAR AND DEPRESSION. Allergies: Coded Allergies: Sulfa (Sulfonamide Antibiotics) (Unverified Allergy, Unknown, 12/25/23) Home Meds Active Scripts Cefdinir (Cefdinir) 300 Mg Capsule, 1 CAP PO BID for 5 Days, #10 CAP 0 Refills Prov:REBECCA CAMPA MD 11/09/24 Ondansetron (Ondansetron Odt) 4 Mg Tab.rapdis, 1 TAB PO Q6HPRN PRN for nausea/vomiting for 4 Days, #16 TAB 0 Refills Prov:GILES FORRESTER MD 03/08/24 Ketorolac Tromethamine (Toradol) 10 Mg Tab, 1 TAB PO Q6HPRN PRN for pain for 5 Days, #20 TAB 0 Refills Prov:GILES FORRESTER MD 03/08/24 Reported Medications Gabapentin (Gabapentin) 600 Mg Tablet, 1 TAB PO TID 11/05/24 Fluoxetine HCl (Fluoxetine HCl) 10 Mg Capsule, 1 CAP PO DAILY 11/05/24 Prazosin HCl (Prazosin HCl) 2 Mg Capsule, 1 CAP PO HS for nightmares 11/05/24 Amlodipine Besylate (Amlodipine Besylate) 5 Mg Tablet, 1 TAB PO DAILY 11/05/24 Folic Acid (Folvite) 1 Mg Tab, 1 TAB PO DAILY 11/05/24 Venlafaxine HCl (Venlafaxine HCl ER) 75 Mg Cap.er.24h, 1 CAP PO DAILY 11/05/24 Hydroxyzine Pamoate (Hydroxyzine Pamoate) 50 Mg Capsule, 1 CAP PO TIDP PRN for anxiety 11/05/24 Past Medical History Past Medical History: Anxiety, Bipolar, Depression, Schizophrenia Additional Past Medical Hx: ems reported partner in site reported psych history Surgical History: Other RN Note Reviewed/Agreed w/PFSH: Yes Review of System Dictation CONSTITUTIONAL: NEGATIVE EXCEPT FOR HPI HEAD/FACE: NEGATIVE EXCEPT FOR HPI EENT: NEGATIVE EXCEPT FOR HPI RESPIRATORY: NEGATIVE EXCEPT FOR HPI GASTROINTESTINAL/ABDOMINAL: NEGATIVE EXCEPT FOR HPI GENITOURINARY: NEGATIVE EXCEPT FOR HPI MUSCULOSKELETAL: NEGATIVE EXCEPT FOR HPI CARPAL SPASM INTEGUMENTARY: NEGATIVE EXCEPT FOR HPI NEUROLOGICAL/PSYCH: NEGATIVE EXCEPT FOR HPI PANIC ATTACK/ANXIETY HEMATOLOGIC/LYMPHATIC: NEGATIVE EXCEPT FOR HPI ALL SYSTEMS NEGATIVE, EXCEPT NOTED ABOVE. 13 POINT REVIEW OF SYSTEMS ASSESSED AND ALL NEGATIVE EXCEPT FOR ABOVE. Initial Vital Sign VS Vital Signs Date Time Temp Pulse Resp B/P (MAP) Pulse Ox O2 Delivery O2 Flow Rate FiO2 12/13/24 18:28 98.2 90 20 107/67 100 Room Air 12/13/24 19:41 0 21 Physical Exam Dictation VITAL SIGNS REVIEWED GENERAL APPEARANCE: ALERT, ORIENTED X 3, SEVERE ACUTE DISTRESS, WELL DEVELOPED, NOURISHED. HEAD AND FACE: NON-TRAUMATIC. EYES: PERRL, PINK CONJUNCTIVAS, EYELID NO TRAUMA, ANTERIOR CHAMBER WITH ARCUS SENILIS. EARS: PINNAS INTACT AND NO SIGNS OF TRAUMA OR ERYTHEMA EAR CANALS CLEAR AND NO DISCHARGE TM NO ERYTHEMA NOSE: NO DISCHARGE, NO BLEEDING. OROPHARYNX: MOUTH NORMAL, TONGUE PINK, PHARYNX CLEAR,NO ERYTHEMA, TONSILS NO EXUDATES, NO ABSCESSES NOTED, MUCOUS MEMBRANE MOIST NECK: SUPPLE, NON-TENDER, NO THYROMEGALY, NO MASSES, NO JVD, NO BRUITS BREAST:DEFERRED CHEST:NO TENDERNESS, NO CREPITUS, NO PARADOXICAL MOVEMENT, NO RETRACTIONS LUNGS:CLEAR, WELL-VENTILATED, SYMMETRIC, NO RALES, NO WHEEZING, NO RHONCHI, NO STRIDOR, GOOD BREATH SOUNDS BILATERALLY HEART: REGULAR RATE, REGULAR RHYTHM, NO MURMUR, NO GALLOPS VASCULAR: NO PERIPHERAL EDEMA, ABDOMEN: SOFT, POSITIVE BOWEL SOUNDS, NONDISTENDED, NO GUARDING, NONTENDER, NO REBOUND, NO MASSES NO HEPATOMEGALY, NO SPLENOMEGALY, NO MACIEL'S SIGN, NO HERNIAS. RECTAL: DEFERRED GENITAL: DEFERRED NEUROLOGICAL: NORMAL SPEECH, MOTOR FUNCTION INTACT, SENSORY FUNCTION INTACT NO SUICIDAL OR HOMICIDAL IDEATION MUSCULOSKELETAL: NECK NONTENDER, FULL RANGE OF MOTION, BACK NONTENDER, FULL RANGE OF MOTION, EXTREMITIES: CARPAL SPASM NOTED TO HANDS BILATERALLY SKIN: COLOR PINK, DRY, NO TURGOR, NO RASH, NO LACERATIONS, NO ABRASIONS, NO CONTUSIONS. LYMPHATIC: DEFERRED Results (Laboratory/Radiology) Laboratory/Radiology Laboratory Tests Test 12/13/24 19:26 12/13/24 19:29 Urine Color LIGHT-YELLOW (YELLOW) Urine Appearance CLEAR (CLEAR) Urine pH 7.0 (5.0-8.0) Urine Specific [place] 1.020 (1.001-1.031) Urine Protein 10 mg/dL (NEGATIVE) H Urine Glucose (UA) NEGATIVE mg/dL (NEGATIVE) Urine Ketones >=80 mg/dL (NEGATIVE) Urine Occult Blood +- (TRACE) (NEGATIVE) H Urine Nitrate NEGATIVE (NEGATIVE) Urine Bilirubin NEGATIVE mg/dL (NEGATIVE) Urine Urobilinogen 0.2 mg/dL (0.2-1.0) Urine Leukocyte Esterase NEGATIVE Halley/uL Urine RBC 2-5 /HPF (0-1) H Urine WBC 2-5 /HPF (0-1) H Urine Squamous Epithelial Cells FEW /HPF (0-2) Urine Bacteria None /HPF (None Seen) Urine Opiates Screen NEGATIVE (NEGATIVE) Urine Barbiturates Screen NEGATIVE (NEGATIVE) Urine Phencyclidine Screen NEGATIVE (NEGATIVE) Urine Amphetamines Screen NEGATIVE (NEGATIVE) Urine Benzodiazepines Screen NEGATIVE (NEGATIVE) Urine Cocaine Screen NEGATIVE (NEGATIVE) Urine Marijuana (THC) Screen POSITIVE (NEGATIVE) H White Blood Count 19.3 K/uL (4.8-10.8) H Red Blood Count 4.29 MIL/uL (4.00-5.50) Hemoglobin 13.8 g/dL (12.0-16.0) Hematocrit 38.4 % (36-48) Mean Corpuscular Volume 89.5 fL (79-99) Mean Corpuscular Hemoglobin 32.2 pg (27.0-33.0) Mean Corpuscular Hemoglobin Concent 35.9 g/dL (32.0-36.0) Red Cell Distribution Width 12.7 % (11.0-15.5) Platelet Count 284 K/uL (130-400) Mean Platelet Volume 9.5 fL (7.5-10.5) Immature Granulocyte % (Auto) 0.7 % (0-1) Neutrophils (%) (Auto) 88.9 % (40.0-77.0) H Lymphocytes (%) (Auto) 5.4 % (21.0-51.0) L Monocytes (%) (Auto) 4.8 % (3.0-13.0) Eosinophils (%) (Auto) 0.0 % (0.0-8.0) Basophils (%) (Auto) 0.2 % (0.0-5.0) Neutrophils # (Auto) 17.2 K/uL (1.8-7.7) H Lymphocytes # (Auto) 1.0 K/uL (1.0-4.8) Monocytes # (Auto) 0.9 K/uL (0.1-1.0) Eosinophils # (Auto) 0.00 K/uL (0.00-0.70) Basophils # (Auto) 0.04 K/uL (0.00-0.20) Absolute Immature Granulocyte (auto 0.13 K/uL (0-1) Nucleated Red Blood Cells 0.0 % (0.0-0.19) White Cell Morphology Comment See comments Sodium Level 134 mmol/L (136-145) L Potassium Level 3.1 mmol/L (3.5-5.1) L Chloride Level 94 mmol/L (101-111) L Carbon Dioxide Level 24 mmol/L (21-32) Blood Urea Nitrogen 6 mg/dL (7-18) L Creatinine 1.0 mg/dL (0.5-1.0) Glomerular Filtration Rate Calc 73 mL/min (>90) Random Glucose 119 mg/dL (70-105) H Total Calcium 9.2 mg/dL (8.5-10.1) Total Creatine Kinase 485 U/L (21-232) #*H Serum Test, Qualitative NEGATIVE (NEGATIVE) Salicylates Level < 2.8 mg/dL (2.8-20.0) L Acetaminophen Level < 1 mcg/mL (10-30) L Serum Alcohol < 3 mg/dL (0-10) Labs Reviewed?: Yes ED Course ED Course Orders Procedure Category Date Status Time Drug Screen Urine LAB 12/13/24 Complete 18:32 Cbc With Differential LAB 12/13/24 Complete 18:32 Alcohol, Blood LAB 12/13/24 Complete 18:32 Salicylate LAB 12/13/24 Complete 18:32 Acetaminophen LAB 12/13/24 Complete 18:32 Testing, LAB 12/13/24 Complete Serum Hcg 18:32 Urinalysis Profile LAB 12/13/24 Complete 18:32 Creatine Kinase, Total LAB 12/13/24 Complete 18:32 Basic Metabolic Panel LAB 12/13/24 Complete 18:32 Diazepam 5mg Tab PHA 12/13/24 Complete (Valium 5 Mg Tab) 19:00 Potassium Bicarb/Cit PHA 12/13/24 Complete Ac 25meq (K-Lyte Ta 20:30 Potassium Chloride PHA 12/13/24 Complete 20meq Er (K-Dur/Klor- 23:00 Ondansetron Odt 4mg PHA 12/13/24 Complete Tab (Zofran 4mg Odt) 23:30 Sucralfate (Carafate) PHA 12/13/24 Complete 23:30 Current Medications Medications (Trade) Dose Ordered Sig/Yevgeniy Route PRN Reason Start Time Stop Time Status Last Admin Dose Admin Diazepam (VALium 5 mg TAB) 5 mg ONCE ONCE PO 12/13/24 19:00 12/13/24 19:01 DC 12/13/24 18:47 Ondansetron HCl (zoFRAN 4MG ODT) 4 mg ONCE ONCE SL 12/13/24 23:30 12/13/24 23:31 DC 12/13/24 23:08 Potassium Bicarbonate (K-Lyte Tablet Eff 25 Meq Tablet.eff) 25 meq ONCE ONCE PO 12/13/24 20:30 12/13/24 20:31 DC Potassium Chloride (K-Dur/Klor-Con 20meq) 40 meq ONCE ONCE PO 12/13/24 23:00 12/13/24 23:01 DC 12/13/24 23:34 Sucralfate (Carafate) 1 gm ONCE ONCE PO 12/13/24 23:30 12/13/24 23:31 DC 12/13/24 23:33 Vital Signs Date Time Temp Pulse Resp B/P (MAP) Pulse Ox O2 Delivery O2 Flow Rate FiO2 12/13/24 23:37 98.1 87 18 108/62 98 Room Air* 0 21 12/13/24 19:41 98.2 88 16 110/64 99 Room Air* 0 21 12/13/24 18:28 98.2 90 20 107/67 100 Room Air 2045/PATIENT IS HEMODYNAMICALLY STABLE AFEBRILE. LEUKOCYTOSIS IS REACTIVE AND NOT DUE TO SEPSIS OR INFECTION. POTASSIUM WAS REPLACED. Medical Decision Making MDM MDM: DIFFERENTIAL DIAGNOSIS: ANXIETY/PANIC ATTACK/ELECTROLYTE IMBALANCE/DEHYDRATION/POLYDRUG ABUSE RATIONALE: TESTS CONSIDERED AND ORDERED SECONDARY TO SHARED DECISION MAKING INCLUDE: LABS/URINE PREVIOUS OUTSIDE RECORDS REVIEWED: OLD ER VISITS. RISK OF COMPLICATION AND/OR MORBIDITY OR MORTALITY OF PATIENT MANAGEMENT: NONE MEDICATIONS-PER MEDICATION RECONCILIATION NEED FOR HOSPITALIZATION: PATIENT DOES NOT MEET CRITERIA FOR HOSPITALIZATION. PATIENT WILL NEED TO BE SCREENED BY [facility] NEED FOR EMERGENCY MAJOR/MINOR SURGERY: NO THERE ARE NO SOCIAL CONCERNS WITH THIS PATIENT. PATIENT USES MARIJUANA IN HIS KNOWN HISTORY OF CANNABIS ABUSE SYNDROME PRESCRIPTION DRUG MANAGEMENT PRESCRIPTIONS WILL INCLUDE SYMPTOMATIC CARE PATIENT'S PRIOR EXTERNAL MEDICAL RECORDS FROM OTHER ER VISITS WERE REVIEWED BY ME INDICATED. PRIOR TESTING AND RESULTS FROM PREVIOUS VISITS WERE REVIEWED. PRIOR TESTS WERE TAKEN INTO ACCOUNT WITH MEDICAL DECISION MAKING AND RESOURCE UTILIZATION, INDEPENDENT HISTORIAN/HISTORIANS WERE USED TO OBTAIN COMPLETE MEDICAL HISTORY. I INDEPENDENTLY INTERPRETED THE TEST THAT WERE PERFORMED, RESULTS WERE REVIEWED BY ME AND CONSIDERED FINDINGS ON RADIOLOGY IF ORDERED. MEDICAL MANAGEMENT AND EXAMINATION INTERPRETATION DISCUSSIONS WERE HAD BY ME WITH OTHER QUALIFIED HEALTHCARE PROFESSIONALS INDICATED FOR THE PATIENT'S CARE. Critical Care Note Comment(s) CARE ASSUMED REPORT RECEIVED FROM TATIANA DE LA TORRE. PATIENT AT THIS TIME HE IS NAUSEOUS AND COMPLAINING OF A HEARTBURN. PER [facility] PRAWN TRAWLER HAND STATES PATIENT DOES NOT MEET CRITERIA FOR INPATIENT SHE WAS SCREENED TODAY. PATIENT WANTS TO GO BACK TO [facility] SOON SYMPTOMS IMPROVED SHE WILL BE DISCHARGED TO GO BACK TO [facility] VOLUNTARILY. PATIENT DENIES SUICIDAL OR HOMICIDAL IDEATIONS. DENIES HALLUCINATIONS. DX & DISP Disposition: Discharge Departure Impression: Primary Impression: Panic attack Additional Impressions: Leukocytosis, Dehydration, Hyperglycemia, Elevated CK-MB level Condition: Stable Referrals: WILLIAM JOHNSON (PCP) Time of Disposition: 20:45 I have reviewed the case, and I agree with, Diagnosis and Plan B[facility] HE[facility] COUNSELOR Dec 13, 2024 18:41 PEPPER RODRIGUEZ NP Dec 13, 2024 23:07
[2024-12-13] MEDS: diazePAM 5 MG TAB PO ONE (18:47)
[2024-12-13 19:34] LABS: ADD UA MICROSCOPIC YES; APPEARANCE,URINE CLEAR (CLEAR); GLUCOSE, URINE (UA) NEGATIVE (NEGATIVE); LEUKOCYTE ESTERASE ,URINE NEGATIVE Leu/uL (NEGATIVE); NITRATE,URINE NEGATIVE (NEGATIVE); OCCULT BLOOD,URINE +- (TRACE) (NEGATIVE)
[2024-12-13 19:35] LABS: IMMATURE GRANULOCYTE ABSOLUTE 0.13 K/uL (0-1); NUCLEATED RED BLOOD CELLS 0.0 % (0.0-0.19); PLATELET COUNT (AUTO) 284 K/uL (130-400); RED BLOOD CELL COUNT(AUTO) 4.29 MIL/uL (4.00-5.50); RED CELL DISTRIBUTION WIDTH 12.7 % (11.0-15.5); WHITE BLOOD COUNT (AUTO) 19.3 K/uL (4.8-10.8)
[2024-12-13 19:36] LABS: SQUAMOUS EPITHELIAL CELL,UR FEW /HPF (0-2)
[2024-12-13 19:42] LABS: CREATININE 1.0 mg/dL (0.5-1.0); GLOMERULAR FILTR. RATE CALC 73 mL/min (>90); GLUCOSE,RANDOM 119 mg/dL (70-105); SODIUM SERUM 134 mmol/L (136-145); UREA NITROGEN, BLOOD 6 mg/dL (7-18)
[2024-12-13 19:49] LABS: AMPHET/METH SCREEN,URINE NEGATIVE (NEGATIVE); BARBITURATE SCREEN, URINE NEGATIVE (NEGATIVE); CANNABINOID SCREEN,URINE POSITIVE (NEGATIVE); COCAINE SCREEN,URINE NEGATIVE (NEGATIVE)
[2024-12-13 19:56] LABS: ALCOHOL, BLOOD < 3 mg/dL (0-10)
[2024-12-13 20:03] LABS: CREATINE KINASE, TOTAL 485 U/L (21-232)
--- NOTE | 2024-12-13 22:51 | NUR ---
[facility] SCREENER CRISIS LINE CALLED, PENDING SCREENER TO COME ASSESS PATIENT
--- NOTE | 2024-12-13 22:57 | NUR ---
PER AMY STEWARD SCREENER, PATIENT WAS ALREADY ASSESS TODAY AND DID NOT MEET CRITERIA. SCREENING PER AMY PICKARD "IS GOOD FOR 24 HRS". ER PROVIDER CHIDI FLORENTINO [employer]KE STILL CLEANER, NOTIFIED
[2024-12-13] MEDS: SUCRALFATE 1 GM/10 ML PO ONE (23:33)
[2024-12-13] MEDS: PoTASSium chloRIDE 20MEQ ER 20 MEQ ERTAB PO ONE (23:34)
[2024-12-13 23:37] VITALS: BP 108/62; PULSE 87; RESP 18; TEMP 98.1; O2SAT 98
== END 2024-12-14 00:19 | disposition home or self-care (01) ==
LOC: EDH 18:26
DX: F41.0 Panic disorder [episodic paroxysmal anxiety] (principal); D72.829 Elevated white blood cell count, unspecified; E86.0 Dehydration; R73.9 Hyperglycemia, unspecified; R74.8 Abnormal levels of other serum enzymes; F31.9 Bipolar disorder, unspecified; F20.9 Schizophrenia, unspecified; Z88.2 Allergy status to sulfonamides; Z79.899 Other long term (current) drug therapy
CPT/HCPCS: 99283; 82550; 80048; 80305; 84703; 85025; 36415; 81001; G0481